=== PATIENT | female | born 1950 | race Caucasian/White ===

== ENCOUNTER 2020-04-24 06:00 | Emergency (ER) | payer MEDICARE ==
[~2020-04-24] VITALS: Ht 162.6 cm; Wt 57.0 kg
[~2020-04-24 06:00] MED LIST: ALBUTEROL MDI; CIPR500T3 PO; LOSA1TAB25 PO; METR-90 PO; MIRALAX
[2020-04-24] MEDS ORDERED: SODIUM CHLORIDE FLUSH 10ML SYR IVF ONE (06:30)
--- NOTE | 2020-04-24 06:43 | NUR ---
PT BIBA FROM [facility] FOR SOB X 2 MONTHS C HTN & MARIEE X YESTERDAY. STATES SHE WAS AT HER BROTHERS & CHECKED IT YESTERDAY (170'S). PT DENIES ANY FEVER. PT ON MONITOR, 80 C BIGEMINY PVCS. HTN. GIVEN RX PER DEC. PT ALSO STATES SHE IS SI. DENIES HAVING A PLAN. STATES IN PAST SHES TAKEN PILLS & SELF MUTILATION.
--- NOTE | 2020-04-24 06:52 | NUR ---
RECEIVED REPORT FROM SUGEY HARRISON, PLAN OF CARE DISCUSSED
[2020-04-24 07:22] LABS: ALBUMIN 3.9 g/dL (3.4-5.0); ANION GAP 4 mmol/L (5-15); CALCIUM 10.6 mg/dL (8.5-10.1); CHLORIDE 106 mmol/L (98-107); CREATININE 1.02 mg/dL (0.55-1.02)
[2020-04-24 07:26] LABS: TROPONIN I < 0.015 ng/mL (0.000-0.045)
--- NOTE | 2020-04-24 07:28 | NUR ---
ASSISTED PATIENT UP TO BATHROOM. PT PLACED ON REAL ESTATE ADMINISTRATOR, IRREGULAR BIGEMENY AT 84, SPO02 AT 94% AND CYCLE VS. PT DENIES SI/SA. ORDERED MEAL AT THIS TIME.
[2020-04-24 07:40] LABS: MEAN CORPUSCULAR HGB CONC 30.2 g/dL (32.4-35.8); MEAN CORPUSCULAR VOLUME 69.5 fL (80-100); MEAN PLATELET VOLUME 8.7 fL (7.4-10.4); PLATELET COUNT 425 x10^3/uL (130-400); RED BLOOD COUNT 4.11 x10^6/uL (3.82-5.3); RED CELL DISTRIBUTION WIDTH 20.4 % (9.6-15.2)
[2020-04-24 07:53] LABS: MD YES
[2020-04-24 07:55] LABS: BAND#(MANUAL) 0.06 x10^3/uL; BANDS%(MANUAL) 1 % (0-7); EOS#(MANUAL) 0.25 x10^3/uL (0.0-0.4); EOS% (MANUAL) 4 % (1-7); LYMPH#(MANUAL) 1.51 x10^3/uL (1-3.4); LYMPHS% (MANUAL) 24 % (22-44); MONOS#(MANUAL) 0.95 x10^3/uL (0.3-2.7); MONOS% (MANUAL) 15 % (2-9); SEG#(MANUAL) 3.53 x10^3/uL (1.8-6.8); SEGS% (MANUAL) 56 % (42-75)
[2020-04-24 07:56] LABS: ANISOCYTOSIS 1+; HYPOCHROMIA 2+; MICROCYTOSIS 2+; OVALOCYTES 1+; POLYCHROMASIA 1+
[2020-04-24 07:57] LABS: <PLATELET ESTIMATE> INCREASED; <PLT MORPHOLOGY> NORMAL PLT MORPH
--- NOTE | 2020-04-24 08:20 | NUR ---
IN TO UPDATE VITALS. PT COMPLAINTS OF FEELING NAUSEA BUT REPORTS HUNGER. GAVE CRACKERS. CHART UP FOR RECHECK. BP IMPROVED.
[2020-04-24 10:01] VITALS: BP 143/80
[2020-04-24] MEDS ORDERED: OMNIPAQUE 350 MG/ML, 75ML BOTTLE ONE (10:15)
--- NOTE | 2020-04-24 10:57 | NUR ---
PROVIDED SHOES AND BUS PT, Patient/Caregiver given discharge instructions and they have confirmed that they understand the instructions. Patient ambulatory with steady gait.
== END 2020-04-24 11:01 | disposition home or self-care (01) ==
LOC: ED 06:58
DX: R06.00 Dyspnea, unspecified (principal); I10 Essential (primary) hypertension; R51 Headache; F17.200 Nicotine dependence, unspecified, uncomplicated
CPT/HCPCS: 36415; 71045; 71275; 80048; 82040; 83880; 84484; 85025; 85379; 93005; 99285; Q9967